=== PATIENT | male | born 1960 | race Caucasian/White ===

== ENCOUNTER 2023-10-30 10:12 | Emergency (ER) | payer BC, MEDICARE, SELFPAY ==
--- NOTE | 2023-10-30 10:35 | EXP.UTC ---
Discharge Plan Disposition Patient Disposition: Home, Self-Care Condition: Good Clinical Impressions Clinical Impression: Headache Discharge ED Provider: Porfirio Ho [facility] General Stated complaint: severe headaches Time Seen by Provider: 10/30/23 10:35 History of Present Illness Provider Complaint: He states that he has chronic left sided head pain. 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 His primary care physician had been prescribing him oxycodone and gabapentin for this pain. Those medications did work for his pain, but his pcp referred him to pain management for this pain last month. He went to pain management in [place] about 2 weeks ago. He was given a steroid injection for his pain there. He states that his insurance does not cover the pain management office, so he is unable to return there at this time. The steroid injection that he received there did not help his pain. His pcp will not prescribe pain medications because he has been referred to pain management. So, he came here to see about being prescribed some pain medication that will help his pain. He denies that the pain is different or more severe than his normal pain symptoms. He denies any weakness or any new symptoms. He has a significant history of diabetes and renal failure. He is unable to take ibuprofen or any other NSAIDS due to his renal history. Related Data Home Medications Medication Instructions Recorded Confirmed carbamazepine 100 mg See Rx Instructions .Route .COMPLEX 10/30/23 10/30/23 tablet,extended release,12 hr carvedilol 25 mg tablet 25 mg PO BID 10/30/23 10/30/23 clonidine HCl 0.1 mg tablet 0.1 mg PO DAILY 10/30/23 10/30/23 gabapentin 800 mg tablet 800 mg PO TID 10/30/23 10/30/23 losartan 50 mg tablet 50 mg PO DAILY 10/30/23 10/30/23 mycophenolate mofetil 250 mg See Rx Instructions .Route .COMPLEX 10/30/23 10/30/23 capsule oxycodone-acetaminophen 5 mg-325 See Rx Instructions .Route .COMPLEX 10/30/23 10/30/23 mg tablet pantoprazole 40 mg tablet,delayed 40 mg PO DAILY 10/30/23 10/30/23 release rosuvastatin 20 mg tablet 20 mg PO DAILY 10/30/23 10/30/23 sertraline 50 mg tablet 50 mg PO DAILY 10/30/23 10/30/23 tacrolimus 1 mg capsule, 1 mg PO DAILY 10/30/23 10/30/23 immediate-release Allergies Allergy/AdvReac Type Severity Reaction Status Date / Time From VYTORIN Allergy Mild ITCH, HIVES Uncoded 05/08/17 14:53 [facility] Disclaimer: The information contained in this section may have been updated after the patient was seen, as this information can be updated by other users. Social History Smoking Status: Former smoker alcohol intake: former current occupational status: retired Travel in the last 8 weeks: None ROS Obtained: Yes All systems reviewed & no additional complaints except as documented Constitutional Constitutional: Denies chills, Denies fever(s) and Reports headache(s) Eyes Eyes: Denies eye discharge ENT Ears, Nose, Mouth, and Throat: Denies dizziness, Denies otalgia, Reports headache(s) and Denies sore throat Cardiovascular Cardiovascular: Denies chest pain Respiratory Respiratory: Denies shortness of breath, Denies chest congestion, Denies cough, Denies stridor and Denies wheezing Gastrointestinal Gastrointestingal: Denies nausea or vomiting Musculoskeletal Musculoskeletal: Reports system reviewed and no additional complaints, except as documented and Denies arthralgias Integumentary/Breasts Skin/Breast: Denies rash Neurologic Neurologic: Reports as per HPI, Denies dizziness, Reports headache(s) and Denies paresthesias Allergic/Immunologic Allergic/Immunologic: Denies wheezing Physical Exam General General appearance: alert and in no apparent distress Head Head exam: atraumatic, normocephalic and normal inspection Eye Eye exam: Present normal appearance, PERRL and EOMI ENT ENT exam: Present normal exam, normal oropharynx and mucous membranes moist Neck Neck exam: Present normal inspection, full ROM and trachea midline; Absent meningismus or lymphadenopathy Chest Chest inspection: Present normal inspection and symmetric chest wall rise; Absent tenderness Respiratory Respiratory exam: Present normal lung sounds bilaterally; Absent respiratory distress Cardiovascular Cardiovascular exam: Present regular rate and normal rhythm; Absent JVD Abdominal Exam Abdominal exam: Present soft and normal bowel sounds; Absent distention, tenderness or guarding Extremities Exam Extremities exam: Present normal inspection, full ROM and normal capillary refill; Absent calf tenderness Back Exam Back exam: Present normal inspection; Absent tenderness Neurological Exam Neurological exam: Present alert and oriented X3 Psychiatric Psychiatric exam: Present normal affect and normal mood Skin Skin exam: Present warm, dry, intact and normal color Lymphatic Lymphatic Findings: no adenopathy Medical Decision Making Medical Records Medical records reviewed: No I reviewed the patient's medical records. Lee Inquiry Pt receiving controlled substance: No Medical Decision Narrative: His neuro exam was wnl, no deficits noted. We don't prescribe or administer controlled substances here at this [facility]. He is unable to take toradol or any other NSAID.
[2023-10-30 10:40] VITALS: BP 169/69; PULSE 74; RESP 18; TEMP 36.8; O2SAT 99; BMI 27.3
[2023-10-30 11:07] VITALS: BP 169/69; PULSE 74; RESP 18; TEMP 36.8; O2SAT 99
== END 2023-10-30 11:07 | disposition home or self-care (01) ==
PROVIDERS: Emergency Provider Nurse Practitioner Family; PCP Physician Assistant
DX: R51.9 Headache, unspecified (principal); E11.22 Type 2 diabetes mellitus with diabetic chronic kidney disease; N18.9 Chronic kidney disease, unspecified
CPT/HCPCS: 99204; 99212; G0463

== ENCOUNTER 2023-10-30 11:10 | Emergency (ER) | payer BC, MEDICARE, SELFPAY ==
[2023-10-30 11:11] VITALS: BP 169/56; PULSE 71; RESP 18; TEMP 36.6; O2SAT 100; BMI 27.3
--- NOTE | 2023-10-30 11:31 | PC.NURSE ---
PT CALLED NURSE TO BEDSIDE. STATES I'VE GOT TO BE SEEN, I DON'T KNOW WHY I'M HERE? INFORMED PT HE WAS THE ONE WHO CHECKED IN TO BE SEEN IN ED AFTER DISCHARGE FROM [facility], STATES I KNOW I DID, I DON'T HAVE TIME TO WAIT TO BE SEEN PT DISCHARGED FROM [facility], AFTER EVALUATION FROM PROVIDER, CHECKED IN TO ED FOR SAME COMPLAINT EVALUATED BY IN [facility]. INSTRUCTED PT THAT MD WILL BE IN TO SEE PT. STATES I DON'T HAVE TIME TO WAIT, I'VE GOT TO GO PT CURSING, PT GRABBED KEYS AND REFUSED ANY OTHER SERVICES.
[2023-10-30 11:35] VITALS: BP 169/56; PULSE 71; RESP 18; TEMP 36.6; O2SAT 100
== END 2023-10-30 11:35 | disposition left against medical advice (07) ==
PROVIDERS: Emergency Provider Student in an Organized Health Care Education/Training Program; PCP Physician Assistant
DX: R51.9 Headache, unspecified (principal)
CPT/HCPCS: 99281

== ENCOUNTER 2023-11-15 10:11 | Outpatient (POV) | payer BC, MEDICARE, SELFPAY ==
[2023-11-15 10:39] VITALS: BP 173/84; PULSE 98; RESP 18; O2SAT 99; BMI 27.3
--- NOTE | 2023-11-15 12:21 | EXP.PAIN.OV ---
HPI Data of Consult Patient: new to practice Consult date: 11/15/23 Requesting Physician: Elva Sanches APRN Primary Care Provider: TIFFANY Burgos Consult Narrative Reason for consult: Right ear pain, head pain, headaches History of present illness: Mr. Caldwell is a 63 year old male who presents today as a new patient. He is a referral from [facility]. Today he rates his pain a 10 out of 10. Patient states he has pain throughout his left ear with radiating symptoms in and around the back of his head and increased headaches. He states this is been going on since he had surgery to remove majority of his left ear due to cancer. Patient states prior to this procedure he did not have these issues going on. Patient describes it as a constant severe pain that is debilitating. He states it does interfere with his ability perform activities of daily living such as cooking and cleaning. Patient states that they were able to remove all the cancer and states that he does still go for regular routine follow-ups. Patient does state he has tried [id number] medications such as Tylenol and with no additional relief. Patient denies any topical use. Patient does state that the pain radiates up around the left side of the back of his head and that he did go to a pain doctor in [place] who did do 1 injection. He states that the injection made his pain worse however he states he is not sure exactly what that was. Patient has been prescribed gabapentin and oxycodone which she states did help initially however over time it is no longer working. Patient is interested in any help we may be able to provide. Patient denies any cervical imaging. His Lee has been reviewed and is appropriate. CC: Elva Sanches APRN [facility] Disclaimer: The information contained in this section may have been updated after the patient was seen, as this information can be updated by other users. Medical History (Updated 11/15/23 @ 12:26 by Elva Sanches APRN) Vitamin D deficiency Diabetes HLD (hyperlipidemia) HTN (hypertension) ESRD (end stage renal disease) AV fistula Squamous cell carcinoma Surgical History (Updated 11/15/23 @ 10:38 by Susanna Garcia RN) Kidney transplant recipient History of ear surgery Family History (Updated 11/15/23 @ 10:38 by Susanna Garcia RN) Other Unknown family medical history Social History (Updated 11/15/23 @ 10:38 by Susanna Garcia RN) Smoking Status: Former smoker alcohol intake: former current occupational status: retired Travel in the last 8 weeks: None Review of Systems Review of Systems Review of systems:: pertinent systems reviewed and negative unless documented below Review of systems (narrative): Review of Systems: General: No recent weight changes, no fever, no sleep disturbances Respiratory: No cough, no shortness of air, no recurring pulmonary infections Cardiovascular/peripheral vascular: No chest pain, no palpitations, no edema, no shortness of breath Gastrointestinal: No new onset incontinence, normal bowel movements reported Genitourinary: No new onset incontinence Musculoskeletal: Left ear pain, left occipital pain, headache Psychiatric: [Normal mood/affect] Neurological: [Denies weakness in extremities], [denies balance issues] Meds Home Medications and Allergies Home Medications Medication Instructions Recorded Confirmed Type carbamazepine 100 mg See Rx Instructions .Route .COMPLEX 10/30/23 11/15/23 History tablet,extended release,12 hr carvedilol 25 mg tablet 25 mg PO BID 10/30/23 11/15/23 History clonidine HCl 0.1 mg tablet 0.1 mg PO DAILY 10/30/23 11/15/23 History gabapentin 800 mg tablet 800 mg PO TID 10/30/23 11/15/23 History losartan 50 mg tablet 50 mg PO DAILY 10/30/23 11/15/23 History mycophenolate mofetil 250 mg See Rx Instructions .Route .COMPLEX 10/30/23 11/15/23 History capsule oxycodone-acetaminophen 5 mg-325 See Rx Instructions .Route .COMPLEX 10/30/23 11/15/23 History mg tablet pantoprazole 40 mg tablet,delayed 40 mg PO DAILY 10/30/23 11/15/23 History release rosuvastatin 20 mg tablet 20 mg PO DAILY 10/30/23 11/15/23 History sertraline 50 mg tablet 50 mg PO DAILY 10/30/23 11/15/23 History tacrolimus 1 mg capsule, 1 mg PO DAILY 10/30/23 11/15/23 History immediate-release New Prescriptions to Start Prescriptions: Allergies Allergy/AdvReac Type Severity Reaction Status Date / Time From VYTORIN Allergy Mild ITCH, HIVES Uncoded 05/08/17 14:53 Objective Vital signs: Pulse Resp BP Pulse Ox O2 Del Method 98 H 18 173/84 H 99 Room Air 11/15/23 10:39 11/15/23 10:39 11/15/23 10:39 11/15/23 10:39 11/15/23 10:39 Narrative: Physical Exam: General: Alert and oriented x3, no acute distress, pleasant and cooperative Lungs: Respirations even and unlabored, symmetrical chest expansion Eyes: PERRL Musculoskeletal: Flexion and extension of cervical [spine] somewhat guarded secondary to pain, point tenderness noted along left occipital region and scarring in the area where prior left ear was removed Neurological: Speech clear, no gross sensory deficit Assessment and Plan *Assessment and plan (1) Occipital neuralgia of left side: Status: Acute Category: Medical Code(s): M54.81 - Occipital neuralgia (2) Headache: Status: Acute Qualifiers: Headache type: post-traumatic Headache chronicity pattern: chronic headache Intractability: intractable Qualified Code(s): G44.321 - Chronic post-traumatic headache, intractable Category: Medical Code(s): R51.9 - Headache, unspecified (3) Left ear pain: Status: Acute Category: Medical Code(s): H92.02 - Otalgia, left ear Plan Patient is experiencing significant pain in and around his left ear and occipital region due to recent surgery that went on last year. Patient did have limited range of motion of his cervical spine due to the pain along the left side and had point tenderness along the left occipital region and around the scar tissue of where his left ear was removed. I have discussed with the patient that he may benefit from a left occipital nerve block. Risk and benefits were discussed with patient and he would like to proceed forward with this plan of care. I will also order the patient a compounded cream. We did get a copy of the records from Payton's mom's office and it does appear that he got trigger point injections. Patient has tried and failed conservative treatment. We will schedule the patient for a left occipital nerve block. Patient has been instructed to contact the clinic with any concerns before the next appointment. Dr. Dumont has reviewed this note and agrees with this plan of care. This note was dictated using voice recognition software and make contain errors or omissions.
== END 2023-11-15 23:59 | disposition home or self-care (01) ==
LOC: SC.PAIN 10:12
PROVIDERS: PCP Physician Assistant; Visit Provider Nurse Practitioner Family
DX: G44.321 Chronic post-traumatic headache, intractable
CPT/HCPCS: 99202; G0463